=== PATIENT | male | born 1935 | race Caucasian/White ===

== ENCOUNTER → 2020-05-13 | Outpatient (CLI) | payer OTHER ==
[~2020-05-13] MED LIST: AMLODIPINE BESYL5 MG PO; COUMADIN 5 MG TA5 M1 PO; HYDROCODON-ACE1 EAC5 PO; LABETALOL HCL200 MG PO; LEVOXYL150 MCG PO; LISINOPRIL40 MG PO; NORTRIPTYLINE H10 M2 PO
== END ==
LOC: SJCVCIMAG 10:47
PROVIDERS: ATTEND Nuclear Medicine Nuclear Cardiology
DX: I70.292 Other atherosclerosis of native arteries of extremities, left leg (principal); I87.2 Venous insufficiency (chronic) (peripheral); D64.9 Anemia, unspecified; I48.20 Chronic atrial fibrillation, unspecified; I10 Essential (primary) hypertension; I27.20 Pulmonary hypertension, unspecified; J44.9 Chronic obstructive pulmonary disease, unspecified; I83.009 Varicose veins of unspecified lower extremity with ulcer of unspecified site; L97.909 Non-pressure chronic ulcer of unspecified part of unspecified lower leg with unspecified severity; E03.9 Hypothyroidism, unspecified; Z87.891 Personal history of nicotine dependence

== ENCOUNTER → 2021-04-07 | Outpatient (CLI) | payer OTHER | END | disposition home or self-care (01) | LOC: SJCVCIMAG 09:01 | PROVIDERS: ATTEND Nuclear Medicine Nuclear Cardiology | DX: I82.451 Acute embolism and thrombosis of right peroneal vein (principal); R60.0 Localized edema; M79.89 Other specified soft tissue disorders; M48.062 Spinal stenosis, lumbar region with neurogenic claudication; I48.91 Unspecified atrial fibrillation; J44.9 Chronic obstructive pulmonary disease, unspecified; I87.2 Venous insufficiency (chronic) (peripheral); I48.20 Chronic atrial fibrillation, unspecified; E03.9 Hypothyroidism, unspecified; Z87.891 Personal history of nicotine dependence; Z88.8 Allergy status to other drugs, medicaments and biological substances; Z79.01 Long term (current) use of anticoagulants; Z79.899 Other long term (current) drug therapy ==